=== PATIENT | female | born 2000 | race Caucasian/White ===

== ENCOUNTER 2018-11-08 16:56 | Outpatient (CLI) | payer OTHER ==
[2018-11-08 17:31] LABS: ADD UMIC YES; UR ASCORBIC ACID NEGATIVE (NEGATIVE); UR BACTERIA FEW /HPF (NONE SEEN); UR BILIRUBIN (Dip) NEGATIVE (NEGATIVE); UR BLOOD (Dip) NEGATIVE (NEGATIVE); UR CLARITY CLOUDY (CLEAR); UR COLOR YELLOW (YELLOW); UR GLUCOSE (Dip) NEGATIVE (NEGATIVE); UR KETONES (Dip) NEGATIVE (NEGATIVE); UR LEUKOCYTE ESTERASE (Dip) 3+ Leu/ul (NEGATIVE); UR MUCUS FEW /HPF (NONE SEEN); UR NITRITE (Dip) NEGATIVE (NEGATIVE); UR RBC 3 /HPF (0-5); UR SPECIFIC GRAVITY (Dip) 1.018 (1.003-1.030); UR SQUAMOUS EPITHELIAL CELL MODERATE /HPF (FEW); UR TOTAL PROTEIN (Dip) NEGATIVE (NEGATIVE); UR UROBILINOGEN (Dip) NEGATIVE (NEGATIVE); UR WBC 18 /HPF (0-5)
== END 2018-11-08 19:20 | disposition home or self-care (01) ==
LOC: OBT 16:56 → L-D 16:57 → OBT 19:20
DX: O36.8130 Decreased fetal movements, third trimester, not applicable or unspecified (principal); O23.43 Unspecified infection of urinary tract in pregnancy, third trimester; Z3A.34 34 weeks gestation of pregnancy
CPT/HCPCS: 76818; 81001; 87086

== ENCOUNTER 2018-12-16 17:34 | Inpatient (IN) | payer OTHER ==
[2018-12-16] MEDS ORDERED: LIDOCAINE 1% (MPF) 30 ML INJ INJ (18:30)
[2018-12-16] MEDS ORDERED: CARBOPROST 250 MCG INJ IM (18:30)
[2018-12-16] MEDS ORDERED: OXYTOCIN 30 UNITS/LR 500 ML IV ×2 (18:30)
[2018-12-16] MEDS ORDERED: MISOPROSTOL 200 MCG TAB PR (18:30)
[2018-12-16] MEDS ORDERED: METHYLERGONOVINE 0.2 MG INJ IM (18:30)
[2018-12-16 19:07] LABS: ADD MAN DIFF? NO
[2018-12-16] MEDS: LACTATED RINGER'S 1,000 ML IV ×3 (19:11→20:55)
[2018-12-16 19:14] LABS: BASOPHIL # 0.1 10^3/ul (0.0-0.1); BASOPHILS % 0.4 % (0.0-2.0); EOSINOPHILS % 0.1 % (0.0-7.0); HEMATOCRIT 39.7 % (37.0-47.0); HEMOGLOBIN 13.3 g/dl (12.0-16.0); LYMPHOCYTES # 1.6 10^3/ul (0.8-2.9); LYMPHOCYTES % 10.3 % (18.0-55.0); MEAN CORPUSCULAR HEMOGLOBIN 29.8 pg (29.0-33.0); MEAN CORPUSCULAR HGB CONC 33.5 g/dl (32.0-37.0); MEAN CORPUSCULAR VOLUME 88.8 fl (72.0-104.0); MEAN PLATELET VOLUME 12.6 fl (7.4-10.4); MONOCYTE # 0.8 10^3/ul (0.3-0.9); MONOCYTES % 4.8 % (0.0-13.0); NEUTROPHIL # 13.1 10^3/ul (1.6-7.5); NEUTROPHILS % 83.8 % (30.0-74.0); PLATELET COUNT 204 10^3/UL (140-415); RED BLOOD COUNT 4.47 10^6/ul (4.20-5.40); RED CELL DISTRIBUTION WIDTH 18.9 % (11.5-14.5)
[2018-12-16 19:14] LABS: WHITE BLOOD COUNT 15.7 10^3/ul (4.8-10.8)
[2018-12-16 19:34] LABS: INR 0.87; PROTIME 11.9 Sec (11.9-14.9); PT RATIO 0.9
[2018-12-16 19:35] LABS: PARTIAL THROMBOPLASTIN TIME 26.4 Sec (23.0-35.0)
[2018-12-16] MEDS ORDERED: FENTAnyl 2MCG/ML-ROPIV 0.2% 100 ML (20:16)
[2018-12-16 20:45] LABS: HEPATITIS B SURFACE ANTIGEN NEGATIVE (NEGATIVE)
[2018-12-16] MEDS ORDERED: NALOXONE (0.4 MG/ML) INJ IV (22:00)
[2018-12-16] MEDS ORDERED: DIPHENHYDRAMINE 50 MG INJ IV (22:00)
[2018-12-16] MEDS ORDERED: TRIMETHOBENZAMIDE 100 MG/ML VIAL IM (22:00)
[2018-12-16] MEDS ORDERED: ONDANSETRON 4 MG INJ IV (22:00)
[2018-12-17] MEDS: LACTATED RINGER'S 1,000 ML IV (04:04)
[2018-12-17] MEDS: FENTAnyl 2MCG/ML-ROPIV 0.2% 100 ML BAG EPI (04:06)
[2018-12-17] MEDS ORDERED: ALBUTEROL HFA 8 GM INHALER INH (08:00)
[2018-12-17] MEDS: MINERAL OIL LIGHT 10 ML VIAL TOP (08:30)
[2018-12-17] MEDS: OXYTOCIN 30 UNITS/LR 500 ML IV ×3 (08:55→13:29)
[2018-12-17] MEDS: LACTATED RINGER'S 1,000 ML IV* (09:08)
[2018-12-17] MEDS ORDERED: HYDROCODONE/APAP (5/325) TAB PO ×2 (09:30)
[2018-12-17] MEDS ORDERED: MISOPROSTOL 200 MCG TAB PR (09:30)
[2018-12-17] MEDS ORDERED: ONDANSETRON 4 MG TAB PO (09:30)
[2018-12-17] MEDS ORDERED: DIPHENHYDRAMINE 50 MG INJ IV (09:30)
[2018-12-17] MEDS ORDERED: DIPHENHYDRAMINE 25 MG CAP PO (09:30)
[2018-12-17] MEDS ORDERED: CARBOPROST 250 MCG INJ IM (09:30)
[2018-12-17] MEDS ORDERED: DIBUCAINE 1% 30 GM OINT TOP (09:30)
[2018-12-17] MEDS ORDERED: OXYTOCIN 30 UNITS/LR 500 ML IV (09:30)
[2018-12-17] MEDS ORDERED: NA PHOSPHATE/BIPHOS 133 ML ENEMA PR (09:30)
[2018-12-17] MEDS ORDERED: SENNA/DOCUSATE NA (8.6MG/50MG) TAB PO (09:30)
[2018-12-17] MEDS ORDERED: ONDANSETRON 4 MG INJ IV (09:30)
[2018-12-17] MEDS ORDERED: MAGNESIUM HYDROXIDE 30ML CUP PO (09:30)
[2018-12-17] MEDS: IBUPROFEN 600 MG TAB PO ×2 (11:30→17:36)
[2018-12-17] MEDS: BENZOCAINE 20% 56 ML SPRAY TOP (11:30)
[2018-12-17] MEDS: WITCH HAZEL/GLYCERIN PAD PR (11:32)
[2018-12-17] MEDS: LANOLIN HPA 1 PKT TOP (11:32)
[2018-12-17 20:19] LABS: RAPID PLASMA REAGIN NONREACTIVE (NR)
[2018-12-17] MEDS: SENNA/DOCUSATE NA (8.6MG/50MG) TAB PO (21:56)
[2018-12-18] MEDS: IBUPROFEN 600 MG TAB PO ×4 (00:29→17:34)
[2018-12-18 08:14] LABS: ADD MAN DIFF? NO
[2018-12-18 08:17] LABS: WHITE BLOOD COUNT 12.1 10^3/ul (4.8-10.8)
[2018-12-18 08:17] LABS: BASOPHIL # 0.1 10^3/ul (0.0-0.1); BASOPHILS % 0.4 % (0.0-2.0); EOSINOPHILS # 0.1 10^3/ul (0.0-0.5); EOSINOPHILS % 0.7 % (0.0-7.0); HEMATOCRIT 33.9 % (37.0-47.0); HEMOGLOBIN 10.9 g/dl (12.0-16.0); LYMPHOCYTES # 2.3 10^3/ul (0.8-2.9); MEAN CORPUSCULAR HEMOGLOBIN 29.9 pg (29.0-33.0); MEAN CORPUSCULAR HGB CONC 32.2 g/dl (32.0-37.0); MEAN CORPUSCULAR VOLUME 93.1 fl (72.0-104.0); MEAN PLATELET VOLUME 12.8 fl (7.4-10.4); MONOCYTE # 0.8 10^3/ul (0.3-0.9); MONOCYTES % 6.3 % (0.0-13.0); NEUTROPHIL # 8.9 10^3/ul (1.6-7.5); PLATELET COUNT 152 10^3/UL (140-415); RED BLOOD COUNT 3.64 10^6/ul (4.20-5.40); RED CELL DISTRIBUTION WIDTH 19.4 % (11.5-14.5)
[2018-12-18] MEDS: SENNA/DOCUSATE NA (8.6MG/50MG) TAB PO ×2 (09:05→20:42)
[2018-12-18] MEDS: GUAIFENESIN/DM 5ML CUP PO (22:46)
[2018-12-19] MEDS: IBUPROFEN 600 MG TAB PO ×3 (00:01→11:54)
[2018-12-19] MEDS: VARICELLA VACCINE LIVE/PF 1,350 UNIT/0.5 ML ML SC* (09:00)
[2018-12-19] MEDS: MEASLES,MUMPS,RUBELLA VACCINE INJ SC* (09:22)
[2018-12-19] MEDS: DIPHTH/TET/ACEL PERTUSS (ADULT) 0.5 ML VIAL IM* (09:22)
[2018-12-19] MEDS: SENNA/DOCUSATE NA (8.6MG/50MG) TAB PO (09:23)
== END 2018-12-19 15:17 | disposition home or self-care (01) | DRG 807 ==
LOC: OBT 17:34 → PP1 12-17 10:07 → L-D 17:34 → OBT 18:12 → L-D 18:12
PROVIDERS: Specialist
PROC: 10E0XZZ Delivery of Products of Conception, External Approach (ICD-10-PCS; principal; 2018-12-17)
PROC: 0HQ9XZZ Repair Perineum Skin, External Approach (ICD-10-PCS; 2018-12-17)
DX: O48.0 Post-term pregnancy (principal); O70.1 Second degree perineal laceration during delivery; O69.81X0 Labor and delivery complicated by cord around neck, without compression, not applicable or unspecified; Z3A.40 40 weeks gestation of pregnancy; Z37.0 Single live birth
CPT/HCPCS: 62322; 76815; 85025; 85610; 85730; 86592; 86850; 86900; 86901; 87340; 90716; 99464